=== PATIENT | female | born 1970 | race Caucasian/White ===

== ENCOUNTER 2017-04-30 09:06 | Outpatient (CLI) | payer OTHER ==
--- NOTE | 2017-04-30 12:32 | CT ---
CT ABDOMEN AND PELVIS WITH AND WITHOUT COTNRAST: HISTORY: Hematuria for 2-3 months. Low back pain. Scoliosis. No history of stone. History of gallbladder and . R31.9 hematuria, unspecified type. FINDINGS: On the noncontrast evaluation of the abdomen and pelvis, there are right upper quadrant surgical cli ps. Lung bases are clear. No pericardial effusion. Moderate left hydroureteral nephrosis. Distal obstructing calculus is not present. Moderate left-s ided hydroureteral nephrosis. No calculus within the urinary renal collecting systems, calyces, pel vis, ureters, and urinary bladder. Too small to characterize hypodensity superior pole. Left kidney is present measuring fluid attenua tion, 6 mm in size, likely a cyst. [place] effect is present of the common bile duct. The pancre as is mildly atrophic. The spleen is normal. No dilated loops of large or small bowel. Aortoiliac contour is normal. No intraperitoneal abnorma lity. Moderate degenerative disk space height loss of L4-L5. On the delayed phase sequence, the calyces are sharp, although the renal pelvic are mildly distended and the ureters are mildly distended. Both ureteral jets are present. Renal parenchymal enhanceme nt is symmetric bilaterally. No perinephric stranding. IMPRESSION: 1. Mild prominence of the renal collecting systems and ureters bilaterally, although the calyces ar e sharp and there is no filling defect and both ureteral jets are definitively visualized. 2. No evidence of duplicated renal collecting systems. 3. No findings to explain the patient's hematuria. 4. Normal appearance of the urinary bladder. 5. Trace free fluid in the dependent pelvis may be physiologic. 6. Mild irregularity of the serosa of the splenic flexure of the colon with mild adjacent fat stran ding. This could be sequelae of a carcinoma versus focal colitis. GI consultation recommended. En doscopy recommended. CODE T POS: [facility]
[2017-04-30] MEDS ORDERED: Iopamidol 370 76% 100 ML VIAL ONE (13:29)
== END 2017-04-30 09:07 | disposition home or self-care (01) ==
LOC: CT 09:06
PROVIDERS: ATTEND Urology
DX: R31.9 Hematuria, unspecified (principal); K63.89 Other specified diseases of intestine
CPT/HCPCS: 74178

== ENCOUNTER 2020-10-09 09:10 | Outpatient (CLI) | payer OTHER | END 2020-10-09 09:11 | disposition home or self-care (01) | LOC: BICULT 09:10 | PROVIDERS: ATTEND Family Medicine | DX: R94.4 Abnormal results of kidney function studies (principal) | CPT/HCPCS: 76770 ==